=== PATIENT | female | born 1940 | race Caucasian/White ===

== ENCOUNTER 2017-04-24 07:44 | Emergency (ER) | payer MEDICARE, BC ==
[2017-04-24 08:05] VITALS: BP 139/78
--- NOTE | 2017-04-24 08:19 | UC ---
Minor Trauma HPI - HPI Summary HPI Summary: Fall on Saturday upon tripping on the rug. She now has pain with deep breaths and has pain left lateral upper ribs towards the axilla. No lung disease or copd. - History of Current Complaint Chief Complaint: UCUpperExtremity Stated Complaint: FALL (SAT) LEFT SIDE ARM/RIB PAIN Time Seen by Provider: 04/24/17 08:08 Hx Obtained From: Patient ?: No Onset/Duration: Sudden Onset, Lasting Days Onset Of Pain: Immediate Severity Initially: Moderate Severity Currently: Severe - pain has been worsening/ Pain Intensity: 1 Mechanism Of Injury: Blunt Trauma Aggravating Factor(s): Deep Breaths, Movement Alleviating Factor(s): Nothing - Allergies/Home Medications Allergies/Adverse Reactions: Allergies Allergy/AdvReac Type Severity Reaction Status Date / Time amlodipine Allergy Unknown Verified 04/24/17 07:58 Reaction Details hydrochlorothiazide Allergy Unknown Verified 04/24/17 07:58 [From Hyzaar] Reaction Details insulin isophane (NPH) Allergy Itching Verified 04/24/17 07:58 [From Novolin 70/30] insulin regular Allergy Itching Verified 04/24/17 07:58 [From Novolin 70/30] losartan [From Hyzaar] Allergy Unknown Verified 04/24/17 07:58 Reaction Details metoclopramide Allergy See Comment Verified 04/24/17 07:58 Home Medications: Home Medications Metoprolol Succinate 100 mg PO BID 04/24/17 [History Confirmed 04/24/17] Multivitamin [Multivitamins] 1 cap PO DAILY 04/24/17 [History Confirmed 04/24/17 ] Naproxen Sodium [Aleve] 440 mg PO BID PRN 04/24/17 [History Confirmed 04/24/17] Rosuvastatin (NF) [Crestor (NF)] 5 mg PO DAILY 04/24/17 [History Confirmed 04/24] PMH/Surg Hx/FS Hx/Imm Hx Previously Healthy: No - dizziness. - Surgical History Surgical History: Yes Surgery Procedure, Year, and Place: Left Leg Stent, hysterectomy 1992, gallbaldder, appendix, T&A - Family History Known Family History: Positive: Cardiac Disease, Diabetes - Social History Alcohol Use: None Substance Use Type: None Smoking Status (MU): Never Smoked Tobacco - Immunization History Most Recent Influenza Vaccination: Not the 2016/2016 Season Review of Systems Musculoskeletal: Other: - left rib/chest pain. All Other Systems Reviewed And Are Negative: Yes Physical Exam Triage Information Reviewed: Yes Appearance: Well-Appearing, No Pain Distress - pleasant and comfortable until she has to take a deep breath then she has sudden sharp pain., Well-Nourished Vital Signs: Initial Vital Signs Temp 98.1 F 04/24/17 07:59 Pulse 63 04/24/17 07:59 Resp 20 04/24/17 07:59 BP 139/78 04/24/17 07:59 Pulse Ox 98 04/24/17 07:59 Vital Signs Reviewed: Yes Eyes: Positive: Conjunctiva Clear ENT: Positive: Normal ENT inspection Neck: Positive: Supple, Nontender, No Lymphadenopathy Respiratory: Positive: Lungs clear, Normal breath sounds, No respiratory distress, No accessory muscle use. Negative: Respiratory distress, Decreased breath sounds, Accessory muscle use, Crackles, Rhonchi, Stridor, Wheezing Cardiovascular: Positive: No Murmur, Pulses Normal Abdomen Description: Positive: No Organomegaly. Negative: CVA Tenderness (R), CVA Tenderness (L), Distended, Guarding Musculoskeletal: Positive: Strength Intact - shoulder and clavicle non tender and no pain with rom., ROM Intact Neurological: Positive: Alert, Muscle Tone Normal. Negative: Fatigued Psychological: Positive: Age Appropriate Behavior Skin: Negative: rashes - no bruising or abrasion. Diagnostics - Radiology No standard instances Radiology Interpretation Completed By: Radiologist Minor Trauma Course/Dx - Course Course Of Treatment: No underlying lung disease that would make rib fracture more worrisome. however, she agrees to go to ED for any worsening symptoms that would suggest pneumonia and these were described in detail. - Differential Dx/Diagnosis Provider Diagnoses: rib fractures left. Discharge - Discharge Plan Condition: Good Disposition: HOME Prescriptions: HYDROcodone/ACETAMIN 5-325 MG* [[place] 5-325 TAB*] 1 tab PO Q4H PRN #30 tab MDD 5 PRN Reason: Pain Spirometers and Accessories [Mistassist] 1 each MC SEE INSTRUCTIONS #1 each Patient Education Materials: Rib Fracture (ED) Referrals: Alida SAHA,Benjamín Jeff [Primary Care Provider] - 1 Day Additional Instructions: Go to ED for any worsening symptoms such as sob, fever, cough or any signs of pneumonia.
--- NOTE | 2017-04-24 08:49 | RAD ---
Indication: Left upper rib pain. 3 views of left ribs and PA dual-energy views of the chest demonstrates no fracture. There is fracture of the left fourth and third ribs. Minimal displacement is noted. No pneumothorax is identified. There is healing fracture proximal humerus. IMPRESSION: Fractures of the left third and fourth ribs without significant displacement. No pneumothorax is noted.
== END 2017-04-24 09:21 | disposition home or self-care (01) ==
LOC: UCCORT 07:44
DX: S22.42XA Multiple fractures of ribs, left side, initial encounter for closed fracture (principal); W01.0XXA Fall on same level from slipping, tripping and stumbling without subsequent striking against object, initial encounter; Y93.9 Activity, unspecified; Y92.9 Unspecified place or not applicable; R42 Dizziness and giddiness; Z88.8 Allergy status to other drugs, medicaments and biological substances
CPT/HCPCS: 99212; G0463